=== PATIENT | female | born 1995 | race Caucasian/White ===

== ENCOUNTER 2020-07-02 10:38 | Outpatient (CLI) | payer BC ==
[~2020-07-02 10:38] MED LIST: Iopamidol 300 61% 50 ML VIAL FS ONE
--- NOTE | 2020-07-02 15:12 | RAD ---
Hysterosalpingogram HISTORY: Infertility. FINDINGS: After explaining the procedure and answering all questions, cervix was carefully exposed an d prepped. HSG catheter carefully placed through the cervical canal and retention balloon inflated in the lower uterine segment. Approximately 8 cc of Isovue contrast was carefully instilled into the endometrial cavity, demonstrat ing normal capacity and contour. Initially, a very small air bubble was noted at the left cornua. There was immediate opacification of each fallopian tube and mediastinal of contrast from the right t ube. Persistent gentle fluid column pressure required to achieve spill from the left fallopian tube. Access contrast was aspirated and catheter removed. Patient tolerated the procedure well and was dism issed in good condition. IMPRESSION : Patent fallopian tubes. No abnormalities demonstrated.
== END 2020-07-02 10:39 | disposition home or self-care (01) ==
LOC: RAD 10:38
PROVIDERS: ATTEND Family Medicine
DX: N97.9 Female infertility, unspecified (principal)
CPT/HCPCS: 58340; 74740; Q9967